=== PATIENT | female | born 1985 | race Caucasian/White ===

== ENCOUNTER 2017-05-01 12:49 | Emergency (ER) | payer OTHER ==
[2017-05-01 13:10] VITALS: RESP 16
--- NOTE | 2017-05-01 13:21 | ED ---
Headache HPI - General Chief Complaint: Headache Stated Complaint: Poss Concussion Time Seen by Provider: 05/01/17 13:14 Source: patient, RN notes reviewed Mode of arrival: ambulatory Limitations: no limitations - History of Present Illness Initial Comments: 31-year-old female presents emergency Department chief complaint headache, head injury. She states that right denies she struck her head getting into bed. Patient states that she does not lose consciousness but she had her left frontal aspect. She states that she's had a headache gets worsened since then. She saw her primary care physician sent her here for further evaluation. Patient denies nausea, vomiting, blurred vision, focal weakness, confusion. Patient states that she has not taken anything for the headache. Patient denies any neck pain. - Related Data Home Medications Medication Instructions Recorded Confirmed No Known Home Medications [No 05/01/17 05/01/17 Known Home Medications] Allergies Allergy/AdvReac Type Severity Reaction Status Date / Time honey Allergy Unknown Verified 05/01/17 13:54 pollen extracts Allergy Dyspnea Verified 05/01/17 13:54 Review of Systems ROS Statement: Those systems with pertinent positive or pertinent negative responses have been documented in the HPI. ROS Other: All systems not noted in ROS Statement are negative. Past Medical History Past Medical History: No Reported History History of Any Multi-Drug Resistant Organisms: None Reported Past Surgical History: No Surgical Hx Reported Past Psychological History: No Psychological Hx Reported Smoking Status: Current every day smoker Past Alcohol Use History: None Reported Past Drug Use History: None Reported General Exam Limitations: no limitations General appearance: alert, in no apparent distress Head exam: Present: atraumatic, normocephalic, normal inspection Eye exam: Present: normal appearance, PERRL, EOMI. Absent: scleral icterus, conjunctival injection, periorbital swelling, periorbital tenderness ENT exam: Present: normal exam, normal oropharynx, mucous membranes moist, TM's normal bilaterally Neck exam: Present: normal inspection, full ROM. Absent: tenderness, meningismus, lymphadenopathy Respiratory exam: Present: normal lung sounds bilaterally. Absent: respiratory distress, wheezes, rales, rhonchi, stridor Cardiovascular Exam: Present: regular rate, normal rhythm, normal heart sounds. Absent: systolic murmur, diastolic murmur, rubs, gallop, clicks Neurological exam: Present: alert, oriented X3, CN II-XII intact, reflexes normal, other. Absent: motor sensory deficit Skin exam: Present: warm, dry, intact, normal color. Absent: rash Course Vital Signs 05/01/17 13:05 Temperature 97.6 F Pulse Rate 88 Respiratory 16 Rate Blood Pressure 146/89 O2 Sat by Pulse 95 Oximetry Medical Decision Making - Medical Decision Making 31-year-old female presented emergency department for head injury. Patient has no acute changes CT. Patient has concussion based on her symptoms. Patient follow-up with them care physician return parameters were discussed. Disposition Clinical Impression: Concussion Disposition: HOME SELF-CARE Condition: Stable Instructions: Concussion (ED) Additional Instructions: Please return to the Emergency Department if symptoms worsen or any other concerns. Referrals: Bebeto Cuevas DO [Primary Care Provider] - 1-2 days Time of Disposition: 15:06
--- NOTE | 2017-05-01 14:38 | CT ---
EXAMINATION TYPE: CT brain wo con DATE OF EXAM: 05/01/2017 COMPARISON: NONE HISTORY: Pain CT DLP: 1090.4 mGycm. Automated Exposure Control for Dose Reduction was Utilized. TECHNIQUE: CT scan of the head is performed without contrast. FINDINGS: There is no acute intracranial hemorrhage, mass effect, or midline shift identified. The ventricles and sulci are within normal limits in size. The globes are intact and the visualized sin uses are clear. Hyperostosis along the inner table of the left frontal bone. IMPRESSION: No acute intracranial hemorrhage, mass effect, or midline shift is seen.
[2017-05-01 15:28] VITALS: BP 138/74; PULSE 84; TEMP 97.3
== END 2017-05-01 15:27 | disposition home or self-care (01) ==
LOC: EC 12:49
DX: S06.0X0A Concussion without loss of consciousness, initial encounter (principal); F17.200 Nicotine dependence, unspecified, uncomplicated; Z91.018 Allergy to other foods; Z91.09 Other allergy status, other than to drugs and biological substances; W01.190A Fall on same level from slipping, tripping and stumbling with subsequent striking against furniture, initial encounter; Y92.003 Bedroom of unspecified non-institutional (private) residence as the place of occurrence of the external cause; Y93.89 Activity, other specified
CPT/HCPCS: 70450; 99284

== ENCOUNTER → 2018-05-21 | Outpatient (CLI) | payer OTHER ==
--- NOTE | 2018-05-21 22:39 | US ---
EXAMINATION TYPE: US carotid duplex BILAT DATE OF EXAM: 05/21/2018 COMPARISON: NONE CLINICAL HISTORY: R42 VERTIGO. EXAM MEASUREMENTS: RIGHT: Peak Systolic Velocity (PSV) cm/sec ----- Right CCA: 104.3 ----- Right ICA: 92.1 ----- Right ECA: 83.4 ICA/CCA ratio: 0.9 RIGHT: End Diastole cm/sec ----- Right CCA: 25.4 ----- Right ICA: 42.4 ----- Right ECA: 15.4 LEFT: Peak Systolic Velocity (PSV) cm/sec ----- Left CCA: 118.2 ----- Left ICA: 73.8 ----- Left ECA: 54.5 ICA/CCA ratio: 0.6 LEFT: End Diastole cm/sec ----- Left CCA: 27.6 ----- Left ICA: 28.5 ----- Left ECA: 0.9 VERTEBRALS (direction of flow): Right Vertebral: Antegrade Left Vertebral: Antegrade Rhythm: Normal Exam noted suboptimal due to patient's habitus of short neck per technologist. Harris scale images show no significant plaque at carotid bulb level bilaterally. Velocity measurements and ratios appear wi thin normal limits. IMPRESSION: No hemodynamically significant stenosis is seen in either internal carotid artery.
== END | disposition home or self-care (01) ==
LOC: RADUSWWP 16:14
PROVIDERS: ATTEND Family Medicine
DX: R42 Dizziness and giddiness (principal)
CPT/HCPCS: 93880

== ENCOUNTER → 2018-06-06 | Outpatient (CLI) | payer OTHER ==
--- NOTE | 2018-06-06 23:13 | MR ---
EXAMINATION TYPE: MR brain/cspine wo/w DATE OF EXAM: 06/06/2018 COMPARISON: CT Brain 01/01/2017 HISTORY: Vertigo or Meniere's Disease. Neck pain. TECHNIQUE: Multiplanar, multisequence images of the cervical spine, brain, and brainstem are all performed witho ut and with IV contrast, utilizing 9.5 mL intravenous Gadavist . FINDINGS: BRAIN: Diffusion weighted images demonstrate no evidence of a recent infarct or other diffusion abnormality. There is no extra-axial fluid collection or significant white matter signal abnormality. The ventr icular system and cisternal spaces are normal in size and appearance. The brain volume is age approp riate. Midline structures demonstrate normal morphology. The craniocervical junction appears within normal limits. Post contrast images demonstrate no abnormal enhancement. The dural venous sinuses appear pa tent. The visualized sinuses are clear and the globes are intact. No abnormal fluid signal seen in ma stoid air cells bilaterally. Nasal septum is deviated to left of midline. IMPRESSION: Unremarkable study. No significant finding is seen to account for patient's symptoms. C-SPINE: FINDINGS: Sagittal images of the cervical spine show the craniocervical junction to appear within nor mal limits. The cervical and upper thoracic spinal cord is normal in course, caliber, and signal. V ertebral alignment is anatomic. The vertebral body and intravertebral disk heights are normal. No s uspicious posterior disc herniations are seen on sagittal images. The bone marrow signal intensity is within normal limits. No suspicious enhancement is noted. No significant spurring is seen. Axial images show there is no significant focal disk disease, spinal canal stenosis, neural foraminal narrowing, or spinal cord compromise at any cervical level. IMPRESSION: Negative MRI of the cervical spine, no significant abnormality is seen to account for debi holman's clinical symptoms.
== END | disposition home or self-care (01) ==
LOC: RADMRIMAIN 15:05
PROVIDERS: ATTEND Family Medicine
DX: R42 Dizziness and giddiness (principal)
CPT/HCPCS: 70553; 72156; A9581

== ENCOUNTER 2018-07-30 08:58 | Day surgery (SDC) | payer OTHER ==
[2018-07-24 14:39] VITALS: BMI 36.0
[~2018-07-30 08:58] MED LIST: SODIUM CHLORIDE 0.9% 1,000 ML IV SCH
[2018-07-30] MEDS ORDERED: SODIUM CHLORIDE 0.9% 500 ML IV ONE ×2 (09:25→09:30)
[2018-07-30 09:28] VITALS: RESP 16; TEMP 98.8
[2018-07-30 11:02] VITALS: BP 115/72; PULSE 83
--- NOTE | 2018-07-31 16:04 | P.PCN ---
Preoperative Diagnosis: Diagnosis Recurrent dizzy spells Baseline 12 ECG shows sinus rhythm normal AR narrow QRS normal ST segments normal QT interval no delta waves no epsilon waves Tilt table test Baseline blood pressure 111/58 mmHg Baseline heart rate 54 beats a minute patient was tilted upright at an angle of 70 per protocol there was minimal change in her heart rate and blood pressure with upright position. No symptoms noted blood pressure heart rate remained stable throughout procedure she was placed supine at the end of the procedure Impression Normal twelve-lead ECG Normal heart rate and blood pressure response to upright tilting
== END 2018-07-30 10:59 | disposition home or self-care (01) ==
LOC: CATHEP 08:58
PROVIDERS: ATTEND Internal Medicine Clinical Cardiac Electrophysiology
DX: R42 Dizziness and giddiness (principal)
CPT/HCPCS: 81025; 93005; 93660

== ENCOUNTER → 2022-02-09 | Outpatient (CLI) | payer OTHER ==
--- NOTE | 2022-02-09 15:57 | US ---
EXAMINATION TYPE: US transvaginal DATE OF EXAM: 02/09/2022 COMPARISON: NONE CLINICAL HISTORY: N91.2 AMENORRHEA, UNSPECIFIED. Amenorrhea TECHNIQUE: Transvaginal (TV). Date of LMP: 08/24/21 EXAM MEASUREMENTS: Uterus: 6.3 x 3.0 x 3.0cm Endometrial Stripe: 0.8 cm Right Ovary: 2.4 x 1.5 x 1.8 cm Left Ovary: 6.7 x 4.2 x 5.7 cm 1. Uterus: Anteverted 2. Endometrium: appears wnl 3. Right Ovary: follicles noted 4. Left Ovary: cystic area = 6.1 x 4.0 x 5.8cm 5. Bilateral Adnexa: anechoic area right adnexa adjacent to right ovary = 2.0cm 6. Posterior cul-de-sac: no evidence of free fluid Heterogeneous uterus with endometrial stripe measuring 8 mm which is within normal limits. Right ovary normal in size with occasional tiny peripheral follicle. There is 2.0 cm oval anechoic ar ea adjacent to right ovary could reflect small paraovarian cyst. Left ovary has oval anechoic lesion with few internal echoes and increased through transmission and s mooth margins measuring 6.1 x 4.0 x 5.8 cm. A few thin septa are present image 42. IMPRESSION: A 6.1 cm nonsimple cyst left ovary. O-RADS 2 lesion almost certainly benign. Follow-up u ltrasound exam in 8-12 weeks time is advised to reassess.
== END | disposition home or self-care (01) ==
LOC: RADUSWWP 14:58
PROVIDERS: ATTEND Obstetrics & Gynecology
DX: N83.202 Unspecified ovarian cyst, left side (principal)
CPT/HCPCS: 76830

== ENCOUNTER → 2022-04-13 | Outpatient (CLI) | payer OTHER ==
--- NOTE | 2022-04-13 08:24 | US ---
EXAMINATION TYPE: US pelvis complete transvag DATE OF EXAM: 04/13/2022 COMPARISON: US 2021 CLINICAL HISTORY: Previous left ovarian cyst N83.202. Follow up left ovarian cyst, irregular cycles TECHNIQUE: . Transabdominal sonographic images of the pelvis were acquired. Transvaginal sonographi c images were medically necessary to better assess the following anatomy: endo and ovaries Date of LMP: patient unsure EXAM MEASUREMENTS: Uterus: 7.6 x 3.5 x 4.2 cm Endometrial Stripe: 0.4 cm Right Ovary: 2.1 x 1.8 x 1.8 cm Left Ovary: 7.9 x 3.8 x 6.0 cm 1. Uterus: anteverted 2. Endometrium: appears wnl 3. Right Ovary: wnl 4. Left Ovary: 8.8 x 3.9 x 5.7cm cyst with internal debris - seen on previous exam 5. Bilateral Adnexa: right adnexa: 2.0cm anechoic area adjacent to right ovary - seen on previous ex am 6. Posterior cul-de-sac: wnl IMPRESSION: 1. There is a 2 cm right adnexal cyst also noted on the prior exam adjacent to the right ovary. This is stable in size. Small paraovarian cyst in the differential diagnosis. 2. There is an increasing cystic mass with internal debris within the left ovary likely representing a complicated cyst or cystic neoplasm measuring 8.8 cm. Hemorrhagic cyst in the differential diagnosi s. Cystic neoplasm is not excluded correlate clinically. Previously measured 6.1 cm.
== END | disposition home or self-care (01) ==
LOC: RADUSWWP 07:05
PROVIDERS: ATTEND Obstetrics & Gynecology
DX: N83.202 Unspecified ovarian cyst, left side (principal); N83.201 Unspecified ovarian cyst, right side; Z90.721 Acquired absence of ovaries, unilateral
CPT/HCPCS: 76830; 76856

== ENCOUNTER 2022-07-12 04:05 | Emergency (ER) | payer OTHER ==
[2022-07-12 04:37] VITALS: RESP 17; TEMP 97.8
[2022-07-12] MEDS ORDERED: DEXAMETHASONE SOD PHOSPHATE 10 MG/ML 1 ML VIAL IM STA (05:05)
[2022-07-12] MEDS ORDERED: hydrOXYzine HCL 25 MG TAB PO STA (05:05)
--- NOTE | 2022-07-12 05:06 | ED ---
Allergic Reaction HPI - General Chief complaint: Allergic Reaction Stated complaint: Allergic reaction Time Seen by Provider: 07/12/22 04:29 Source: patient, RN notes reviewed, old records reviewed Mode of arrival: ambulatory Limitations: no limitations - History of Present Illness Initial Comments: This is a 36-year-old female to the emergency room for evaluation she presents today for evaluation regards to ALLERGIC reaction ALLERGIC reaction being itching. Unsure of reason. She did take significant amount of Benadryl prior to arrival which did help mildly. She has no shortness of breath no feelings of stridor No wheezing and no feeling of tongue swelling. No prior history of same MD Complaint: allergic reaction, other (Itching and pruritus rash) -: hour(s) Exposure: unknown Symptoms: rash, itching Severity: moderate Treatment Prior to Arrival: benadryl Previous Allergy History: none - Related Data Home Medications Medication Instructions Recorded Confirmed Multivitamins, Thera [Multivitamin 1 tab PO DAILY 07/24/18 07/30/18 (formulary)] Allergies Allergy/AdvReac Type Severity Reaction Status Date / Time honey Allergy Unknown Verified 07/12/22 04:09 pollen extracts Allergy Dyspnea Verified 07/12/22 04:09 Review of Systems ROS Statement: Those systems with pertinent positive or pertinent negative responses have been documented in the HPI. ROS Other: All systems not noted in ROS Statement are negative. Past Medical History Past Medical History: No Reported History Additional Past Medical History / Comment(s): See Dr Enriquez's H&P History of Any Multi-Drug Resistant Organisms: None Reported Past Surgical History: No Surgical Hx Reported Additional Past Anesthesia/Blood Transfusion Reaction / Comment(s): no anesthesia Past Psychological History: No Psychological Hx Reported Smoking Status: Never smoker Past Alcohol Use History: Rare Past Drug Use History: None Reported - Past Family History Mother Family Medical History: No Reported History General Exam Limitations: no limitations General appearance: alert, in no apparent distress Head exam: Present: atraumatic, normocephalic, normal inspection Eye exam: Present: normal appearance, PERRL, EOMI. Absent: scleral icterus, conjunctival injection, periorbital swelling ENT exam: Present: normal exam, mucous membranes moist Neck exam: Present: normal inspection. Absent: tenderness, meningismus, lymphadenopathy Respiratory exam: Present: normal lung sounds bilaterally. Absent: respiratory distress, wheezes, rales, rhonchi, stridor Cardiovascular Exam: Present: regular rate, normal rhythm, normal heart sounds. Absent: systolic murmur, diastolic murmur, rubs, gallop, clicks GI/Abdominal exam: Present: soft, normal bowel sounds. Absent: distended, tenderness, guarding, rebound, rigid Extremities exam: Present: normal inspection, full ROM, normal capillary refill. Absent: tenderness, pedal edema, joint swelling, calf tenderness Back exam: Present: normal inspection Neurological exam: Present: alert, oriented X3, CN II-XII intact Psychiatric exam: Present: normal affect, normal mood Skin exam: Present: warm, dry, intact, normal color. Absent: rash Course Vital Signs 07/12/22 07/12/22 07/12/22 04:09 04:13 06:21 Temperature 97.6 F 97.8 F Pulse Rate 103 H 84 83 Respiratory 18 17 Rate Blood Pressure 150/87 135/78 148/99 O2 Sat by Pulse 97 96 Oximetry - Reevaluation(s) Reevaluation #1: 07/12/22 06:58 Medical record is reviewed Reevaluation #2: 07/12/22 06:58 Patient symptoms are significantly improved Reevaluation #3: 07/12/22 06:58 Patient informed results and questions answered Medical Decision Making - Medical Decision Making 36 female to the emergency department for evaluation patient presents today for evaluation of itchy rash, pruritus and urticaria, symptoms improved here in the ER and can be discharged home Disposition Clinical Impression: Allergic reaction, Urticaria Disposition: HOME SELF-CARE Condition: Good Instructions (If sedation given, give patient instructions): Urticaria (ED) Is patient prescribed a controlled substance at d/c from ED?: No Referrals: Evelyn Hughes MD [Primary Care Provider] - 1-2 days Time of Disposition: 07:00
[2022-07-12 06:21] VITALS: BP 148/99; PULSE 83
== END 2022-07-12 07:24 | disposition home or self-care (01) ==
LOC: EC 04:05
DX: L50.0 Allergic urticaria (principal)
CPT/HCPCS: 96372; 99283; J1100

== ENCOUNTER → 2023-02-13 | Outpatient (CLI) | payer OTHER ==
--- NOTE | 2023-02-13 09:57 | US ---
EXAMINATION TYPE: US pelvis complete transvag DATE OF EXAM: 02/13/2023 COMPARISON: US 04/13/22 CLINICAL HISTORY: N83.299 ovarian cyst R102 pelvic pain. Complex left ovarian cyst. Hx irregular naida ods. G0. TECHNIQUE: Transvaginal (TV) and Transabdominal (TA) . Pelvic structures were not well seen TA. Date of LMP: 11/19/2022 EXAM MEASUREMENTS: Uterus: 7.8 x 4.0 x 2.8 cm Endometrial Stripe: 0.52 cm Right Ovary: Not seen with certainty Left Ovary: Not seen with certainty, questionable area could resemble ovarian tissue versus other. 1. Uterus: Anteverted Subcentimeter anechoic area seen in cervix, likely nabothian cyst. 2. Endometrium: Measures 0.52 cm. 3. Right Ovary: Not seen with certainty 4. Left Ovary: Area measured midline pelvis extending into left adnexa could resemble ovarian tissue versus other. See below. 5. Bilateral Adnexa: Large complex area seen midline pelvis extending into left adnexa measuring 10.2 x 7.3 x 5.2 cm, more anechoic area within measures 8.7 x 6.4 x 4.4 cm. *Free fluid seen within left adnexa. Appearance of anechoic possible fluid superior to the uterus within midline pelvis: 3.4 x 3.9 x 2.2 cm. 6. Posterior cul-de-sac: Appears wnl IMPRESSION: 1. Free fluid within the pelvis and large cyst like structure within the left adnexa. Ovarian neoplas m should be considered. Consider CT abdomen and pelvis for additional workup
--- NOTE | 2023-02-14 08:30 | MM ---
Reason for Exam: Screening (asymptomatic). Last screening mammogram was performed 12 month(s) ago. Patient History: Menarche at age 14. Patient has no children. Premenopausal. Hormonal Contraceptives for 3 years from age 33 until age 36. Risk Values: Edda 5 year model risk: 0.5%. NCI Lifetime model risk: 10.2%. Prior Study Comparison: 02/11/2022 Bilateral Screening Mammogram, [facility]. Tissue Density: There are scattered fibroglandular densities. Findings: Analyzed By CAD. There is no suspicious group of microcalcifications or new suspicious mass in either breast. Overall Assessment: Negative, BI-RAD 1 Management: Screening Mammogram of both breasts in 1 year. A clinical breast exam by your physician is recommended on an annual basis and results should be correlated with mammographic findings. Electronically signed and approved by: Edilberto Palomares M.D. Radiologis
== END | disposition home or self-care (01) ==
LOC: RADUSWWP 08:27
PROVIDERS: ATTEND Obstetrics & Gynecology
DX: Z12.31 Encounter for screening mammogram for malignant neoplasm of breast (principal); N83.292 Other ovarian cyst, left side; R10.2 Pelvic and perineal pain
CPT/HCPCS: 76830; 76856; 77063; 77067